=== PATIENT | female | born 1980 | race Two or more races ===

== ENCOUNTER 2016-11-26 08:30 | Emergency (ER) | payer OTHER ==
[2016-11-26 08:35] VITALS: BMI 25.0
--- NOTE | 2016-11-26 09:55 | PDOC ---
History of Present Illness <Suzette Rae - Last Filed: 11/26/16 14:00> - General History Source: Patient Exam Limitations: No Limitations - History of Present Illness Initial Comments: 11/26/16 14:32 The patient is a 36 year old female, with a significant past medical history of kidney stones, who presents to the emergency department with room spinning dizziness for 4 days and hematuria since yesteday. She notes last night having red blood in her urine without any clots last night but noticed the blood cleared this morning. Also reports mild R flank pain yesterday that resolved. She denies recent fevers, or chills. She reports the room spinning dizziness is positional, and at times feels nauseous. She has had similar dizziness previously that self resolved. She denies recent nausea, vomit, diarrhea or constipation. She denies recent dysuria, frequency, urgency. She denies recent chest pain or shortness of breath. Denies headache, focal weakness/numbness Allergies: NKA Past surgical history: Lipotripsy (2013) Social history: Nonsmoker. Denies EtOH use and recreational drug use. PCP: Does not have one. <Kavin Chou - Last Filed: 11/26/16 14:33> - General Chief Complaint: Hematuria Stated Complaint: LIGHTHEADED/URINARY PROBLEM Time Seen by Provider: 11/26/16 09:01 Past History - Past Medical History Other medical history: denies - Suicide/Smoking/Psychosocial Hx Smoking History: Never smoked Information on smoking cessation initiated: No Hx Alcohol Use: No Drug/Substance Use Hx: No Substance Use Type: None <Suzette Rae - Last Filed: 11/26/16 14:00> <Kavin Chou - Last Filed: 11/26/16 14:33> - Past Medical History Allergies/Adverse Reactions: Allergies Allergy/AdvReac Type Severity Reaction Status Date / Time No Known Allergies Allergy Verified 11/26/16 08:35 Home Medications: Ambulatory Orders Cephalexin [Keflex] 500 mg PO BID #14 capsule 11/26/16 Review of Systems - Review of Systems Able to Perform ROS?: Yes Comments:: 11/26/16 14:33 GENERAL/CONSTITUTIONAL: No fever or chills. No weakness. HEAD, EYES, EARS, NOSE AND THROAT: No change in vision. No ear pain or discharge. No sore throat. CARDIOVASCULAR: No chest pain or shortness of breath. RESPIRATORY: No cough, wheezing, or hemoptysis. GASTROINTESTINAL: No nausea, vomiting, diarrhea or constipation. GENITOURINARY: +Hematuria No dysuria, frequency, or change in urination. MUSCULOSKELETAL: +right flank pain. No joint or muscle swelling or pain. No neck pain. SKIN: No rash NEUROLOGIC: +dizziness No:loss of consciousness, or change in strength/ sensation. ENDOCRINE: No increased thirst. No abnormal weight change. HEMATOLOGIC/LYMPHATIC: No anemia, easy bleeding, or history of blood clots. ALLERGIC/IMMUNOLOGIC: No hives or skin allergy. <Kavin Chou - Last Filed: 11/26/16 14:33> *Physical Exam - Vital Signs Last Vital Signs Temp Pulse Resp BP Pulse Ox 98.2 F 64 18 124/72 100 11/26/16 08:34 11/26/16 08:34 11/26/16 08:34 11/26/16 08:34 11/26/16 08:34 <Suzette Rae - Last Filed: 11/26/16 14:00> - Vital Signs Last Vital Signs Temp Pulse Resp BP Pulse Ox 97.8 F 78 18 103/56 100 11/26/16 14:16 11/26/16 14:16 11/26/16 14:16 11/26/16 14:16 11/26/16 14:16 - Physical Exam Comments: 11/26/16 14:33 GENERAL: Awake, alert, and fully oriented, in no acute distress HEAD: No signs of trauma EYES: PERRLA, EOMI, sclera anicteric, conjunctiva clear ENT: Auricles normal inspection, hearing grossly normal, nares patent, oropharynx clear without exudates. Moist mucosa NECK: Normal ROM, supple, no lymphadenopathy, JVD, or masses LUNGS: Breath sounds equal, clear to auscultation bilaterally. No wheezes, and no crackles HEART: Regular rate and rhythm, normal S1 and S2, no murmurs, rubs or gallops ABDOMEN: Not remarkable. Soft, nontender, normoactive bowel sounds. No guarding , no rebound. No masses EXTREMITIES: Normal range of motion, no edema. No clubbing or cyanosis. No cords , erythema, or tenderness NEUROLOGICAL: Normal speech, cranial nerves intact, negative pronator drift, 5/ 5 strength in all 4 extremities, normal sensation to light touch in all 4 extremities, normal cerebellar exam, normal gait, normal reflexes and tone SKIN: Warm, Dry, normal turgor, no rashes or lesions noted. Dix[place] pike test positive on the right <Kavin Chou - Last Filed: 11/26/16 14:33> ED Treatment Course - LABORATORY CBC & Chemistry Diagram: 11/26/16 10:49 11/26/16 10:49 <Suzette Rae - Last Filed: 11/26/16 14:00> - LABORATORY CBC & Chemistry Diagram: 11/26/16 10:49 11/26/16 10:49 - ADDITIONAL ORDERS Additional order review: Laboratory Results 11/26/16 11/26/16 11/26/16 10:49 10:17 10:17 Sodium 136 Potassium 4.3 Chloride 104 Carbon Dioxide 26 Anion Gap 6 L BUN 11 Creatinine 0.5 L Creat Clearance w eGFR > 60 Random Glucose 78 Calcium 8.9 Total Bilirubin 0.4 AST 19 ALT 37 Alkaline Phosphatase 89 Total Protein 8.1 Albumin 4.1 Urine Color Yellow Urine Appearance Cloudy Urine pH 6.0 Urine Protein Negative Urine Glucose (UA) Negative Urine Ketones Negative Urine Blood 2+ H Urine Nitrite Negative Urine Bilirubin Negative Urine Urobilinogen Negative Ur Leukocyte Esterase 1+ H Urine RBC 149 Urine WBC 17 Ur Epithelial Cells Few Urine Mucus Rare Urine HCG, Qual Negative 11/26/16 10:49 RBC 5.13 MCV 78.8 L MCHC 32.7 RDW 13.5 MPV 9.0 Neutrophils % 54.4 Lymphocytes % 35.3 Monocytes % 6.4 Eosinophils % 2.7 Basophils % 1.2 - Medications Given in the ED: ED Medications Discontinued Medications Generic Name Dose Route Start Last Admin Trade Name Freq PRN Reason Stop Dose Admin Acetaminophen 1,000 mg 11/26/16 10:14 11/26/16 10:18 Tylenol - PO 11/26/16 10:15 1,000 mg ONCE ONE Administration Meclizine HCl 25 mg 11/26/16 10:13 11/26/16 10:18 Antivert - PO 11/26/16 10:14 25 mg ONCE ONE Administration Metoclopramide HCl 10 mg 11/26/16 10:11 11/26/16 10:18 Reglan Injection - IVPB 11/26/16 10:12 10 mg ONCE ONE Administration Sodium Chloride 1,000 ml 11/26/16 10:11 11/26/16 10:18 Normal Saline - IV 11/26/16 10:12 1,000 ml ONCE ONE Administration <Kavin Chou - Last Filed: 11/26/16 14:33> Medical Decision Making - Medical Decision Making 11/26/16 12:01 36-year-old female with a history of renal colic presents with hematuria last night that is mostly resolved today, associated with mild right flank pain also resolved today. Patient also reporting room spinning dizziness and has a positive dixhall pike on exam here today. Likely recurrent renal colic however patient reports no pain today, possibly signifying that the stone has passed. With regards to the dizziness, likely peripheral given positive [place] mariscal pike test, negative headache and normal remainder of neurologic exam. Plan -labs -UA -UPT -meclizine -reassess 11/26/16 14:03 Labs unremarkable. UPT negative. UA with blood and red blood cells concerning for kidney stone. Also many white blood cells - possible infection. Pt is asymptomatic. Bedside ultrasound with no renal hydronephrosis and thus no concern for obstructing stone especially in the absence of pain. Will treat for UTI. Dizziness has also resolved with meclizine. 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 I discussed the physical exam findings, ancillary test results and final diagnoses with the patient. I answered all of the patient's questions. The patient was satisfied with the care received and felt comfortable with the discharge plan and treatment plan. The patient will call their primary care physician within 24 hours to arrange follow-up and will return to the Emergency Department with any new, persistent or worsening symptoms. <Suzette Rae - Last Filed: 11/26/16 14:00> *DC/Admit/Observation/Transfer <Suzette Rae - Last Filed: 11/26/16 14:00> - Attestations Scribe Attestion: 11/26/16 14:33 Documentation prepared by Kavin Chou, acting as medical and scientific illustrator for Suzette Rae MD,. <Kavin Chou - Last Filed: 11/26/16 14:33> Diagnosis at time of Disposition: Lower urinary tract infectious disease - Prescriptions Prescriptions: Cephalexin [Keflex] 500 mg PO BID #14 capsule - Patient Instructions Printed Discharge Instructions: Kidney Stones -- Adult Additional Instructions: Please see your primary care doctor within 1 week. Take your antibiotics as prescribed. Return to the emergency department immediately for any new or concerning symptoms or if your symptoms get worse. Thank you for coming to the Emergency Department today for your care. It was a pleasure to see you today. Please note that your evaluation is INCOMPLETE until you follow-up with your doctor.
[2016-11-26] MEDS ORDERED: SODIUM CHLORIDE 0.9% 500 ML INFUS.BAG IV ONE (10:11)
[2016-11-26] MEDS ORDERED: METOCLOPRAMIDE HCL INJECTION 10 MG/2 ML VIAL IVPB ONE (10:11)
[2016-11-26] MEDS ORDERED: MECLIZINE HCL 25 MG TABLET (FP) PO ONE (10:13)
[2016-11-26] MEDS ORDERED: ACETAMINOPHEN 500 MG TABLET (FP) PO ONE (10:14)
[2016-11-26] MEDS ORDERED: METOCLOPRAMIDE HCL INJECTION 10 MG/2 ML VIAL ONE (10:19)
[2016-11-26] MEDS ORDERED: ACETAMINOPHEN 325 MG TABLET (FP) ONE (10:19)
[2016-11-26] MEDS ORDERED: MECLIZINE HCL 25 MG TABLET (FP) ONE (10:19)
[2016-11-26 11:07] LABS: BASOPHIL 1.2 % (0-2.0); EOSINOPHIL 2.7 % (0-4.5); MCH 25.7 pg (25.7-33.7); MCHC 32.7 g/dl (32.0-36.0); MEAN CELL VOLUME 78.8 fl (80-96); NEUTROPHILS 54.4 % (42.8-82.8); PLATELET COUNT 198 K/MM3 (134-434); RDW 13.5 % (11.6-15.6); WHITE BLOOD COUNT 5.4 K/mm3 (4.0-10.0)
[2016-11-26 11:31] LABS: ALBUMIN 4.1 g/dl (3.4-5.0); ANION GAP 6 (8-16); CALCIUM 8.9 mg/dL (8.5-10.1); CO2 26 mmol/L (21-32); CREATININE 0.5 mg/dL (0.55-1.02); GLUCOSE,RANDOM 78 mg/dL (74-106); SGOT/AST 19 U/L (15-37); SGPT/ALT 37 U/L (12-78)
[2016-11-26 11:33] LABS: ALK PHOS 89 U/L (45-117); BILIRUBIN,TOTAL 0.4 mg/dL (0.2-1.0); TOT PROT 8.1 g/dl (6.4-8.2)
[2016-11-26 12:21] LABS: URINE APPEARANCE CLOUDY; URINE BILIRUBIN NEGATIVE (NEGATIVE); URINE BLOOD 2+ (NEGATIVE); URINE COLOR YELLOW; URINE GLUCOSE (UA) NEGATIVE (NEGATIVE); URINE KETONE NEGATIVE (NEGATIVE); URINE NITRITE NEGATIVE (NEGATIVE); URINE PROTEIN NEGATIVE (NEGATIVE); URINE UROBILINOGEN NEGATIVE mg/dL (0.2-1.0)
[2016-11-26 12:29] LABS: URINE LEUK ESTERASE 1+ (NEGATIVE)
[2016-11-26 12:33] LABS: URINE MUCUS RARE; URINE RBC 149 /hpf (0-3); URINE WBC 17 /hpf (3-5)
[2016-11-26 14:17] VITALS: BP 103/56; PULSE 78; TEMP 97.8
== END 2016-11-26 14:17 | disposition home or self-care (01) ==
LOC: JER 08:30
PROC: 3E033GC Introduction of Other Therapeutic Substance into Peripheral Vein, Percutaneous Approach (ICD-10-PCS; principal; 2016-11-26)
DX: N39.0 Urinary tract infection, site not specified (principal); R31.9 Hematuria, unspecified; Z87.442 Personal history of urinary calculi
CPT/HCPCS: 36415; 80053; 81003; 81015; 84703; 85025; 87086; 96374; 99283-25

== ENCOUNTER 2017-04-02 15:52 | Emergency (ER) | payer OTHER ==
--- NOTE | 2017-04-02 16:08 | PDOC ---
Rapid Medical Evaluation Time Seen by Provider: 04/02/17 16:04 Medical Evaluation: Allergies Allergy/AdvReac Type Severity Reaction Status Date / Time No Known Allergies Allergy Verified 04/02/17 16:04 I have performed a brief in-person evaluation of this patient. The patient presents with a chief complaint of: back pain x 2 days. worse with movement. No dysuria. hx of kidney stones - patient states it does not feel like kidney stone Pertinent physical exam findings: pain with palpation of left flank. No CVA TTP. I have ordered the following: UA/hcg/culture The patient will proceed to the ED for further evaluation.
[2017-04-02 16:09] VITALS: BP 119/77; PULSE 85; TEMP 98.5; BMI 30.2
[2017-04-02 16:35] LABS: URINE APPEARANCE CLEAR; URINE BILIRUBIN NEGATIVE (NEGATIVE); URINE BLOOD 3+ (NEGATIVE); URINE COLOR STRAW; URINE GLUCOSE (UA) NEGATIVE (NEGATIVE); URINE KETONE NEGATIVE (NEGATIVE); URINE NITRITE NEGATIVE (NEGATIVE); URINE UROBILINOGEN NEGATIVE mg/dL (0.2-1.0)
[2017-04-02 16:36] LABS: HCG,QUALITATIVE URINE NEGATIVE; URINE LEUK ESTERASE 1+ (NEGATIVE); URINE PROTEIN 1+ (NEGATIVE)
[2017-04-02 16:40] LABS: EPI CELLS RARE /HPF (FEW); URINE MUCUS RARE
--- NOTE | 2017-04-02 17:50 | PDOC ---
History of Present Illness - General Chief Complaint: Back Pain Stated Complaint: BACK PAIN Time Seen by Provider: 04/02/17 16:04 History Source: Patient Exam Limitations: Language Barrier ([employer] interpreter number [id number]) - History of Present Illness Initial Comments: 04/02/17 17:44 Patient is a [27-year-old female with history of kidney stones presents with left lateral back pain. Patient reports pain started yesterday. Patient denies any urinary pain. Pain is reproducible as well as at rest, similar to pain she had in the past with a kidney stone that she needed have ablated. No fever, no nausea vomiting, no respiratory difficulty, no pain on inspiration.] Past Medical History: [Denies]. Allergies: No known allergies Medications: [None] Family History: Non-contributory Social History: Denies smoking, alcohol use, or IVDU Review of Systems GENERAL/CONSTITUTIONAL: [No fever or chills. No weakness. No weight change.] HEAD, EYES, EARS, NOSE AND THROAT: [No change in vision. No ear pain or discharge. No sore throat. ] CARDIOVASCULAR: [No chest pain or shortness of breath.] RESPIRATORY: [No cough, wheezing, or hemoptysis.] GASTROINTESTINAL: [No nausea, vomiting, diarrhea or constipation. No rectal bleeding.] GENITOURINARY: [No dysuria, frequency, or change in urination.] MUSCULOSKELETAL: [No joint or muscle swelling or pain. Left CVA pain, no neck pain NEUROLOGIC: [No headache, vertigo, loss of consciousness, or loss of sensation.] PSYCHIATRIC: [No depression or anxiety.] ENDOCRINE: [No increased thirst. No abnormal weight change.] HEMATOLOGIC/LYMPHATIC: [No anemia, easy bleeding, or history of blood clots.] ALLERGIC/IMMUNOLOGIC: [No hives or skin allergy. No latex allergy.] Physical Exam: GENERAL: [The patient is awake, alert, and fully oriented, in no acute distress. ] EYES: [Pupils equal, round and reactive to light, extraocular movements intact, sclera anicteric, conjunctiva clear.] ENT: [Ears normal, nares patent, oropharynx clear without exudates. Moist mucous membranes. No uvula deviation] NECK: [Normal range of motion, supple without lymphadenopathy, JVD, or masses.] LUNGS: [Breath sounds equal, clear to auscultation bilaterally. No wheezes, and no crackles.] HEART: [Regular rate and rhythm, normal S1 and S2 without murmur, rub or gallop. ] ABDOMEN: [Soft, nontender, normoactive bowel sounds. No guarding, no rebound. No masses. No bruising or abrasions] MUSCULOSKELETAL: [Normal range of motion, no edema. No clubbing or cyanosis. No cords, erythema, or tenderness. Left CVA tenderness..] NEUROLOGICAL: [Cranial nerves II through XII grossly intact. Normal speech, normal gait.] SKIN: [Warm, Dry, normal turgor, no rashes or lesions noted.] Past History - Past Medical History Allergies/Adverse Reactions: Allergies Allergy/AdvReac Type Severity Reaction Status Date / Time No Known Allergies Allergy Verified 04/02/17 16:04 Home Medications: Ambulatory Orders Cephalexin Monohydrate [Keflex -] 500 mg PO BID #20 capsule 04/02/17 Naproxen [Naprosyn -] 500 mg PO BID #14 tablet 04/02/17 COPD: No - Suicide/Smoking/Psychosocial Hx Smoking History: Never smoked Information on smoking cessation initiated: No Hx Alcohol Use: No Drug/Substance Use Hx: No Substance Use Type: None *Physical Exam - Vital Signs Last Vital Signs Temp Pulse Resp BP Pulse Ox 98.5 F 85 18 119/77 100 04/02/17 16:05 04/02/17 16:05 04/02/17 16:05 04/02/17 16:05 04/02/17 16:05 ED Treatment Course - ADDITIONAL ORDERS Additional order review: Laboratory Results 04/02/17 16:13 Urine Color Straw Urine Appearance Clear Urine pH 6.0 Ur Specific [place] 1.021 Urine Protein 1+ H Urine Glucose (UA) Negative Urine Ketones Negative Urine Blood 3+ H Urine Nitrite Negative Urine Bilirubin Negative Urine Urobilinogen Negative Ur Leukocyte Esterase 1+ H Urine WBC (Auto) 9 Urine RBC (Auto) 648 Ur Epithelial Cells Rare Urine Mucus Rare Urine HCG, Qual Negative Medical Decision Making - Medical Decision Making 04/02/17 18:19 A/P: Patient with left CVA tenderness, urinalysis sent demonstrates blood in the urine. Laboratory Results - last 24 hr 04/02/17 16:13 Urine Color Straw Urine Appearance Clear Urine pH 6.0 Ur Specific [place] 1.021 Urine Protein 1+ H Urine Glucose (UA) Negative Urine Ketones Negative Urine Blood 3+ H Urine Nitrite Negative Urine Bilirubin Negative Urine Urobilinogen Negative Ur Leukocyte Esterase 1+ H Urine WBC (Auto) 9 Urine RBC (Auto) 648 Ur Epithelial Cells Rare Urine Mucus Rare Urine HCG, Qual Negative There is +1 leukoesterase with a WBC count of 9, will treat for urinary tract infection will also sent for CT scan to rule out kidney stones a stone based on the level of pain urine is negative. CT scan with right calculus, was noted on the left IUD is slightly low I have given patient results and examination, we will discharge patient on antibiotics for UTI and pain medication she reports pain is resolved after Toradol. We'll give prescription for Naprosyn. Will follow-up with her [employer]G [employer]IENCE INSTRUCTOR for placement of IUD. I discussed the physical exam findings, ancillary test results and final diagnoses with the patient. I answered all of the patient's questions. The patient was satisfied with the care received and felt comfortable with the discharge plan and treatment plan. The patient will call to arrange follow-up and will return to the Emergency Department with any new, persistent or worsening symptoms. 04/02/17 18:58 *DC/Admit/Observation/Transfer Diagnosis at time of Disposition: UTI (urinary tract infection) Qualifiers: Urinary tract infection type: site unspecified Hematuria presence: without hematuria Qualified Code(s): N39.0 - Urinary tract infection, site not specified - Discharge Dispostion Disposition: HOME Condition at time of disposition: Stable Admit: No - Prescriptions Prescriptions: Cephalexin Monohydrate [Keflex -] 500 mg PO BID #20 capsule Naproxen [Naprosyn -] 500 mg PO BID #14 tablet - Referrals - Patient Instructions Printed Discharge Instructions: DI for Urinary Tract Infection (UTI) Additional Instructions: Please follow-up with DOG [employer]IENCE INSTRUCTOR for placement of the IUD Antibiotics as ordered and Naprosyn as ordered for pain Any fever, increased pain, respiratory difficulty, or any other concerns return to ER - Post Discharge Activity Forms/Work/School Notes: Back to Work
[2017-04-02] MEDS ORDERED: KETOROLAC TROMETHAMINE 60 MG/2 ML VIAL IM ONE (17:54)
[2017-04-02] MEDS ORDERED: KETOROLAC TROMETHAMINE 60 MG/2 ML VIAL ONE (18:06)
== END 2017-04-02 19:13 | disposition home or self-care (01) ==
LOC: JERFT 15:52
PROC: 3E0233Z Introduction of Anti-inflammatory into Muscle, Percutaneous Approach (ICD-10-PCS; principal; 2017-04-02)
DX: N39.0 Urinary tract infection, site not specified (principal)
CPT/HCPCS: 74176; 81003; 81015; 84703; 87086; 96372; 99281-25